=== PATIENT | male | born 1965 | race Caucasian/White ===

== ENCOUNTER 2022-03-05 20:47 | Emergency (ER) | payer MEDICAID ==
[~2022-03-05] VITALS: Ht 175.3 cm; Wt 75.0 kg
[2022-03-05] MEDS ORDERED: CefTRIAXone SODIUM 1 GM/VIAL IM ONE (22:15)
[2022-03-05] MEDS ORDERED: LIDOCAINE/PF 1% 2 ML VIAL IM ONE (22:15)
[2022-03-05] MEDS ORDERED: DOXYCYCLINE HYCLATE 100 MG TABLET PO ONE (22:15)
[2022-03-05] MEDS ORDERED: DOXY-354 PO (22:59)
[2022-03-05] MEDS ORDERED: CEPH-558 PO (22:59)
[2022-03-05 23:30] VITALS: BP 125/75
== END 2022-03-05 23:50 | disposition home or self-care (01) ==
LOC: EMS 20:55
DX: L03.115 Cellulitis of right lower limb (principal); F19.10 Other psychoactive substance abuse, uncomplicated; F11.10 Opioid abuse, uncomplicated
CPT/HCPCS: 99283; 96372; J0696; J3490

== ENCOUNTER 2022-08-23 20:43 | Emergency (ER) | payer MEDICAID ==
[~2022-08-23] VITALS: Ht 175.3 cm; Wt 75.0 kg
[~2022-08-23 20:43] MED LIST: CEPH-558 PO; DOXY-354 PO
[2022-08-24 00:09] LABS: BASOPHILS % (AUTO) 0.5 % (0.0-2.0); EOSINOPHILS % (AUTO) 0.1 % (1.0-6.0); HEMOGLOBIN 13.1 g/dL (13.5-17.5); LYMPHOCYTES # (AUTO) 0.6 K/uL (1.0-4.8); LYMPHOCYTES % (AUTO) 11.8 % (22.0-44.0); MEAN CORPUSCULAR HEMOGLOBIN 31.5 pg (26.0-34.0); MEAN CORPUSCULAR HGB CONC 33.6 G/dL (31.0-37.0); MEAN CORPUSCULAR VOLUME 94 fL (80-100); MONOCYTES # (AUTO) 0.5 K/uL (0.1-1.0); MONOCYTES % (AUTO) 10.5 % (2.0-9.0); NEUTROPHILS # (AUTO) 3.6 K/uL (1.8-7.7); NEUTROPHILS % (AUTO) 77.1 % (40.0-70.0); PLATELET COUNT (AUTO) 168 K/uL (150-450); RED BLOOD CELL COUNT(AUTO) 4.15 MIL/uL (4.50-5.90); RED CELL DISTRIBUTION WIDTH 14.9 % (11.5-14.5)
[2022-08-24 00:20] LABS: ANION GAP 4 mmol/L (8-16); CALCIUM, TOTAL 9.2 mg/dL (8.8-10.5); CARBON DIOXIDE 32 mmol/L (22-29); CHLORIDE 101 mmol/L (98-107); GLOMERULAR FILTR. RATE CALC > 60 mL/min (>60); GLUCOSE,RANDOM 113 mg/dL (70-110); POTASSIUM 3.8 mmol/L (3.5-5.1); SODIUM SERUM 137 mmol/L (136-145); UREA NITROGEN, BLOOD 15 mg/dL (7-18)
[2022-08-24 00:26] LABS: ALANINE AMINOTRANSFERASE 49 U/L (12-78); ALBUMIN 4.1 g/dL (3.4-5.0); ALKALINE PHOSPHATASE 56 U/L (46-116); ASPARTATE AMINOTRANSFERASE 65 U/L (15-37); BILIRUBIN,TOTAL 0.3 mg/dL (0.1-1.0); TOTAL PROTEIN, SERUM 7.6 g/dL (6.4-8.2)
[2022-08-24 00:47] LABS: INR 1.1 (0.9-1.1); PROTHROMBIN TIME 11.2 SEC (9.4-11.6)
[2022-08-24 03:08] VITALS: BP 133/70
[2022-08-24] MEDS ORDERED: CLIN-142 PO (03:09)
== END 2022-08-24 03:16 | disposition home or self-care (01) ==
LOC: EMS 20:43
DX: L03.115 Cellulitis of right lower limb (principal)
CPT/HCPCS: 80053; 83605; 85025; 85610; 85730; 93970; 99285

== ENCOUNTER 2023-03-11 13:33 | Emergency (ER) | payer MEDICAID ==
[~2023-03-11] VITALS: Ht 175.3 cm; Wt 72.7 kg
[~2023-03-11 13:33] MED LIST changes: -CEPH-558 PO; +CLIN-142 PO; -DOXY-354 PO
[2023-03-11 13:45] VITALS: TEMP 98.1
[2023-03-11 14:19] LABS: APPEARANCE,URINE HAZY (CLEAR); BILIRUBIN,URINE NEGATIVE (NEGATIVE); COLOR,URINE YELLOW (YELLOW); GLUCOSE, URINE (UA) NEGATIVE (NEGATIVE); KETONES,URINE NEGATIVE (NEGATIVE); LEUKOCYTE ESTERASE ,URINE LARGE (NEGATIVE); NITRATE,URINE NEGATIVE (NEGATIVE); OCCULT BLOOD,URINE MODERATE (NEGATIVE); PH,URINE 5.5 (5.0-8.0); PROTEIN,URINE 30-70 mg/dL (NEGATIVE); SPECIFIC GRAVITIY, URINE 1.016 (1.003-1.030); UROBILINOGEN,URINE <=1.0 mg/dL (<=1.0)
[2023-03-11 14:29] LABS: BACTERIA,URINE Moderate /HPF (None Seen); WBC,URINE >100 /HPF (0-5)
[2023-03-11 15:15] VITALS: BP 119/64; PULSE 71; RESP 17
[2023-03-11] MEDS ORDERED: CEPHALEXIN MONOHYDRATE 500 MG CAPSULE PO ONE (15:15)
[2023-03-11] MEDS ORDERED: CEPH-558 PO (15:21)
== END 2023-03-11 15:41 | disposition home or self-care (01) ==
LOC: EMS 13:57
DX: N39.0 Urinary tract infection, site not specified (principal)
CPT/HCPCS: 81001; 87086; 87186; 99283

== ENCOUNTER 2024-02-29 10:21 | Emergency (ER) | payer MEDICAID ==
[~2024-02-29] VITALS: Ht 177.8 cm; Wt 68.2 kg
[~2024-02-29 10:21] MED LIST changes: +CEPH-558 PO; -CLIN-142 PO
[2024-02-29 10:26] VITALS: BP 142/88; PULSE 88; RESP 18; TEMP 98; O2SAT 99
[2024-02-29] MEDS: ACETAMINOPHEN 500 MG TABLET PO ONE (10:41)
[2024-02-29] MEDS: KETOROLAC TROMETHAMINE 30 MG/ML VIAL IM ONE (10:41)
[2024-02-29] MEDS ORDERED: IBUP-1492 PO (10:43)
[2024-02-29] MEDS ORDERED: ACET-3385 PO (10:43)
[2024-02-29] MEDS ORDERED: LIDO700A15 TP (10:43)
== END 2024-02-29 10:49 | disposition home or self-care (01) ==
LOC: EMS 10:21
DX: S13.4XXA Sprain of ligaments of cervical spine, initial encounter (principal); V89.2XXA Person injured in unspecified motor-vehicle accident, traffic, initial encounter; Y93.89 Activity, other specified; Y92.89 Other specified places as the place of occurrence of the external cause; Y99.8 Other external cause status
CPT/HCPCS: 99283; 96372; J1885

== ENCOUNTER 2024-07-02 20:12 | Emergency (ER) | payer MEDICAID ==
[~2024-07-02] VITALS: Ht 175.3 cm; Wt 77.3 kg
[~2024-07-02 20:12] MED LIST changes: +ACET-3385 PO; -CEPH-558 PO; +IBUP-1492 PO; +LIDO700A15 TP
[2024-07-02 20:41] VITALS: BP 124/79; PULSE 71; RESP 18; TEMP 98.7; O2SAT 98
[2024-07-02 20:50] LABS: COVID AG,FIA SOURCE NASAL SWAB
[2024-07-02 21:12] LABS: INFLUENZA TYPE A NEGATIVE FOR TYPE A (NEGATIVE); INFLUENZA TYPE B NEGATIVE FOR TYPE B (NEGATIVE); SARS-COV2 (COVID) ANTIGEN,FIA Negative (Negative)
== END 2024-07-02 22:09 | disposition left against medical advice (07) ==
LOC: EMS 20:20
DX: Z53.21 Procedure and treatment not carried out due to patient leaving prior to being seen by health care provider (principal); Z20.822 Contact with and (suspected) exposure to COVID-19
CPT/HCPCS: 87804

== ENCOUNTER 2024-08-01 20:36 | Emergency (ER) | payer MEDICAID ==
[~2024-08-01] VITALS: Ht 175.3 cm; Wt 75.0 kg
[2024-08-01 20:39] VITALS: BP 143/81; PULSE 85; RESP 20; TEMP 97.9; O2SAT 98
[2024-08-01] MEDS: KETOROLAC TROMETHAMINE 30 MG/ML VIAL IM ONE (23:26)
[2024-08-01] MEDS: LIDOCAINE 5% TRANSDERMAL PATCH TD ONE (23:26)
[2024-08-01] MEDS: TraMADol HCL 50 MG TABLET PO ONE (23:27)
== END 2024-08-02 02:22 | disposition left against medical advice (07) ==
LOC: EMS 20:36
DX: M54.50 Low back pain, unspecified (principal)
CPT/HCPCS: 99283; 96372; J1885

== ENCOUNTER 2024-09-16 20:01 | Inpatient (IN) | payer MEDICAID ==
[~2024-09-16] VITALS: Ht 175.3 cm; Wt 71.5 kg
[~2024-09-16 20:01] MED LIST changes: +LIDO-57 TP; -LIDO700A15 TP
[2024-09-16] MEDS: IPRATROPIUM BROMIDE 0.5 MG/2.5 ML NEB SOLUTION NEB ONE (20:59)
[2024-09-16] MEDS: ALBUTEROL SULFATE 2.5 MG/0.5 ML NEB SOLUTION NEB ONE (20:59)
[2024-09-16 21:00] VITALS: PULSE 68; RESP 16; RESP 21; O2SAT 97
[2024-09-16 21:06] LABS: COVID AG,FIA SOURCE NASAL SWAB
[2024-09-16 21:07] LABS: BASOPHILS % (AUTO) 0.3 % (0.0-2.0); EOSINOPHILS % (AUTO) 0.3 % (1.0-6.0); HEMATOCRIT 38.2 % (41-53); HEMOGLOBIN 12.8 g/dL (13.5-17.5); LYMPHOCYTES # (AUTO) 0.7 K/uL (1.0-4.8); LYMPHOCYTES % (AUTO) 12.9 % (22.0-44.0); MEAN CORPUSCULAR HGB CONC 33.5 G/dL (31.0-37.0); MEAN CORPUSCULAR VOLUME 90 fL (80-100); MONOCYTES # (AUTO) 0.5 K/uL (0.1-1.0); MONOCYTES % (AUTO) 9.5 % (2.0-9.0); NEUTROPHILS # (AUTO) 4.2 K/uL (1.8-7.7); PLATELET COUNT (AUTO) 153 K/uL (150-450); RED BLOOD CELL COUNT(AUTO) 4.26 MIL/uL (4.50-5.90); RED CELL DISTRIBUTION WIDTH 13.8 % (11.5-14.5); WHITE BLOOD COUNT (AUTO) 5.5 K/uL (4.5-11.0)
[2024-09-16 21:18] LABS: ANION GAP 11 mmol/L (8-16); CALCIUM, TOTAL 8.7 mg/dL (8.8-10.5); CARBON DIOXIDE 27 mmol/L (22-29); CHLORIDE 103 mmol/L (98-107); CREATININE 0.81 mg/dL (0.60-1.30); GLOMERULAR FILTR. RATE CALC > 60 mL/min (>60); GLUCOSE,RANDOM 100 mg/dL (70-110); SODIUM SERUM 141 mmol/L (136-145); UREA NITROGEN, BLOOD 16 mg/dL (7-18)
[2024-09-16 21:20] VITALS: PULSE 72; RESP 20; O2SAT 100
[2024-09-16 21:25] LABS: TROPONIN I-HIGH SENSITIVITY 25 ng/L (<76)
[2024-09-16 21:29] LABS: INFLUENZA TYPE A NEGATIVE FOR TYPE A (NEGATIVE); INFLUENZA TYPE B NEGATIVE FOR TYPE B (NEGATIVE); SARS-COV2 (COVID) ANTIGEN,FIA Negative (Negative)
[2024-09-16 21:30] LABS: B-TYPE NATRIURETIC PEPTIDE 23 pg/mL (0-100)
[2024-09-16 21:39] LABS: CREATINE KINASE, TOTAL ONLY 375 U/L (39-308)
[2024-09-16] MEDS: LIDOCAINE 1% 10 ML VIAL SQ ONE (21:55)
[2024-09-16] MEDS: FentaNYL CITRATE PF 100 MCG/2 ML VIAL IVP ONE (21:56)
[2024-09-16] MEDS: LORazepam 2 MG/ML VIAL IVP ONE (21:56)
[2024-09-17] MEDS: FentaNYL CITRATE PF 100 MCG/2 ML VIAL IVP ONE (00:09)
[2024-09-17 03:20] LABS: APPEARANCE,URINE HAZY (CLEAR); BILIRUBIN,URINE NEGATIVE (NEGATIVE); COLOR,URINE LIGHT YELLOW (YELLOW); GLUCOSE, URINE (UA) NEGATIVE (NEGATIVE); KETONES,URINE NEGATIVE (NEGATIVE); LEUKOCYTE ESTERASE ,URINE NEGATIVE (NEGATIVE); NITRATE,URINE NEGATIVE (NEGATIVE); OCCULT BLOOD,URINE NEGATIVE (NEGATIVE); PROTEIN,URINE NEGATIVE (NEGATIVE); SPECIFIC GRAVITIY, URINE 1.024 (1.003-1.030); UROBILINOGEN,URINE <=1.0 mg/dL (<=1.0)
[2024-09-17] MEDS: TraMADol HCL 50 MG TABLET PO PRN (04:57)
[2024-09-17 05:30] VITALS: BP 166/94; PULSE 75; RESP 18; TEMP 98.4; O2SAT 97
[2024-09-17] MEDS ORDERED: ONDANSETRON HCL 4 MG/2 ML VIAL IVP PRN (06:30)
[2024-09-17] MEDS ORDERED: ACETAMINOPHEN 325 MG TABLET PO PRN (06:30)
[2024-09-17] MEDS ORDERED: BISACODYL 10 MG RECTAL RECTAL SUPPOSITORY PR PRN (06:30)
[2024-09-17] MEDS ORDERED: MAGNESIUM HYDROXIDE SUSPENSION 30 ML UDCUP PO PRN (06:30)
[2024-09-17 08:00] VITALS: BP 150/99; PULSE 84; RESP 18; TEMP 98.3; O2SAT 95
[2024-09-17 08:22] LABS: ANION GAP 12 mmol/L (8-16); CALCIUM, TOTAL 9.4 mg/dL (8.8-10.5); CARBON DIOXIDE 24 mmol/L (22-29); CHLORIDE 101 mmol/L (98-107); CREATININE 0.78 mg/dL (0.60-1.30); GLOMERULAR FILTR. RATE CALC > 60 mL/min (>60); GLUCOSE,RANDOM 102 mg/dL (70-110); POTASSIUM 3.9 mmol/L (3.5-5.1); SODIUM SERUM 137 mmol/L (136-145); UREA NITROGEN, BLOOD 12 mg/dL (7-18)
[2024-09-17 08:23] LABS: BASOPHILS % (AUTO) 0.3 % (0.0-2.0); EOSINOPHILS % (AUTO) 0.1 % (1.0-6.0); LYMPHOCYTES # (AUTO) 0.5 K/uL (1.0-4.8); LYMPHOCYTES % (AUTO) 5.3 % (22.0-44.0); MEAN CORPUSCULAR HEMOGLOBIN 30.6 pg (26.0-34.0); MEAN CORPUSCULAR HGB CONC 34.1 G/dL (31.0-37.0); MEAN CORPUSCULAR VOLUME 90 fL (80-100); MONOCYTES # (AUTO) 0.4 K/uL (0.1-1.0); MONOCYTES % (AUTO) 4.3 % (2.0-9.0); NEUTROPHILS # (AUTO) 8.5 K/uL (1.8-7.7); PLATELET COUNT (AUTO) 162 K/uL (150-450); RED CELL DISTRIBUTION WIDTH 13.6 % (11.5-14.5); WHITE BLOOD COUNT (AUTO) 9.4 K/uL (4.5-11.0)
[2024-09-17 08:28] LABS: RBC MORPHOLOGY COMMENT NORMAL RBC MORPH
[2024-09-17] MEDS: HYDROCODONE/ACETAMINOPHEN 5-325 MG TABLET PO PRN (08:30)
[2024-09-17] MEDS: HEPARIN SODIUM,PORCINE 5,000 UNITS/ML VIAL SQ SCH (08:30)
[2024-09-17] MEDS: DOCUSATE SODIUM 100 MG CAPSULE PO SCH (08:30)
[2024-09-17] MEDS: PANTOPRAZOLE SODIUM 40 MG DR TABLET PO SCH (08:30)
[2024-09-17 12:27] LABS: AMPHET/METH SCREEN,URINE POSITIVE (NEGATIVE); BARBITURATE SCREEN, URINE NEGATIVE (NEGATIVE); BENZODIAZEPINES SCREEN,URINE NEGATIVE (NEGATIVE); CANNABINOID SCREEN,URINE NEGATIVE (NEGATIVE); COCAINE SCREEN,URINE NEGATIVE (NEGATIVE); METHADONE SCREEN, URINE NEGATIVE (NEGATIVE); OPIATE SCREEN,URINE NEGATIVE (NEGATIVE); PHENCYCLIDINE SCREEN,URINE NEGATIVE (NEGATIVE)
[2024-09-17 12:32] LABS: ALCOHOL, URINE DRUG SCREEN NEGATIVE (NEGATIVE)
[2024-09-17 12:36] VITALS: BP 156/98; PULSE 73; RESP 18; TEMP 98.4; O2SAT 97
[2024-09-17] MEDS: MORPHINE SULFATE 2 MG/ML SYRINGE IVP PRN (13:22)
[2024-09-17 16:00] VITALS: BP 164/99; PULSE 77; RESP 26; TEMP 98.5; O2SAT 94
[2024-09-17 20:00] VITALS: BP 163/107; PULSE 84; RESP 13; TEMP 97.9; O2SAT 95
[2024-09-17] MEDS: KETOROLAC TROMETHAMINE 15 MG/ML VIAL IVP ONE (21:11)
[2024-09-17] MEDS: haloperidoL LACTATE 5 MG/ML VIAL IVP ONE (21:16)
[2024-09-17] MEDS: LORazepam 2 MG/ML VIAL IVP ONE (21:16)
[2024-09-17] MEDS: DiphenhydrAMINE HCL 50 MG/ML VIAL IVP ONE (21:17)
[2024-09-17] MEDS: ZOLPIDEM TARTRATE 5 MG TABLET PO PRN (21:34)
[2024-09-18] VITALS (10 sets, daily range): BP systolic 146–185; BP diastolic 69–120; PULSE 47–97; RESP 7–36; TEMP 98.6–99.6; O2SAT 96–99
[2024-09-18] MEDS ORDERED: DiphenhydrAMINE HCL 50 MG/ML VIAL IM ONE (03:00)
[2024-09-18] MEDS ORDERED: haloperidoL LACTATE 5 MG/ML VIAL IM ONE (03:00)
[2024-09-18] MEDS ORDERED: LORazepam 2 MG/ML VIAL IM ONE (03:00)
[2024-09-18] MEDS: LORazepam 2 MG/ML VIAL IVP ONE (03:11)
[2024-09-18] MEDS: DiphenhydrAMINE HCL 50 MG/ML VIAL IVP ONE (03:11)
[2024-09-18] MEDS: haloperidoL LACTATE 5 MG/ML VIAL IVP ONE (03:12)
[2024-09-18] MEDS ORDERED: SODIUM CHLORIDE 0.9% 1,000 ML ONE (03:38)
[2024-09-18] MEDS: MIDAZOLAM HCL 5 MG/ML VIAL IVP ONE (03:39)
[2024-09-18] MEDS ORDERED: ETOMIDATE 2 MG/ML 10 ML VIAL IVP ONE (03:45)
[2024-09-18] MEDS: ETOMIDATE 2 MG/ML 10 ML VIAL IVP ONE (04:06)
[2024-09-18] MEDS: DEXMEDETOMIDINE 400 MCG/NS 100 ML IV PRN (04:07)
[2024-09-18 05:36] LABS: ANION GAP 11 mmol/L (8-16); CALCIUM, TOTAL 8.6 mg/dL (8.8-10.5); CARBON DIOXIDE 24 mmol/L (22-29); CHLORIDE 101 mmol/L (98-107); GLOMERULAR FILTR. RATE CALC > 60 mL/min (>60); GLUCOSE,RANDOM 128 mg/dL (70-110); POTASSIUM 3.3 mmol/L (3.5-5.1); SODIUM SERUM 136 mmol/L (136-145); UREA NITROGEN, BLOOD 17 mg/dL (7-18)
[2024-09-18 05:38] LABS: EOSINOPHILS % (AUTO) 0 % (1.0-6.0); HEMATOCRIT 42.1 % (41-53); HEMOGLOBIN 14.5 g/dL (13.5-17.5); LYMPHOCYTES # (AUTO) 0.4 K/uL (1.0-4.8); LYMPHOCYTES % (AUTO) 3.3 % (22.0-44.0); MEAN CORPUSCULAR HEMOGLOBIN 30.1 pg (26.0-34.0); MEAN CORPUSCULAR HGB CONC 34.4 G/dL (31.0-37.0); MEAN CORPUSCULAR VOLUME 87 fL (80-100); MONOCYTES # (AUTO) 0.7 K/uL (0.1-1.0); MONOCYTES % (AUTO) 6.4 % (2.0-9.0); NEUTROPHILS # (AUTO) 9.6 K/uL (1.8-7.7); PLATELET COUNT (AUTO) 168 K/uL (150-450); RED BLOOD CELL COUNT(AUTO) 4.82 MIL/uL (4.50-5.90); WHITE BLOOD COUNT (AUTO) 10.7 K/uL (4.5-11.0)
[2024-09-18 05:39] LABS: NEUTROPHILS % (AUTO) 90.3 % (40.0-70.0)
[2024-09-18] MEDS ORDERED: SODIUM CHLORIDE 0.9% 250 ML IV ONE (06:31)
[2024-09-18] MEDS ORDERED: ChlordiazePOXIDE HCL 25 MG CAPSULE PO PRN (08:30)
[2024-09-18] MEDS: LORazepam 2 MG/ML VIAL IVP PRN ×2 (08:52→11:05)
[2024-09-18] MEDS: ETHYL ALCOHOL 62% ANTISEPTIC NASAL SANITIZER 0.6 ML AMPUL NASAL SCH (08:52)
[2024-09-18] MEDS ORDERED: LORazepam 2 MG/ML VIAL IVP PRN (10:15)
[2024-09-18] MEDS: DEXTROSE 5%-0.45% SODIUM CHL 1,000 ML IV ONE (11:00)
[2024-09-18] MEDS: POTASSIUM CHL 10 MEQ/WATER 50 ML IV PRN (15:02)
[2024-09-18] MEDS: HydrALAZINE HCL 20 MG/ML VIAL IVP PRN (15:03)
[2024-09-19] VITALS (7 sets, daily range): BP systolic 138–156; BP diastolic 74–97; PULSE 53–69; RESP 30–35; TEMP 97.9–99.4; O2SAT 95–97
[2024-09-19 03:08] LABS: BASOPHILS % (AUTO) 0.3 % (0.0-2.0); EOSINOPHILS % (AUTO) 0.1 % (1.0-6.0); HEMOGLOBIN 14.8 g/dL (13.5-17.5); LYMPHOCYTES # (AUTO) 0.6 K/uL (1.0-4.8); LYMPHOCYTES % (AUTO) 5.8 % (22.0-44.0); MEAN CORPUSCULAR HEMOGLOBIN 30.2 pg (26.0-34.0); MEAN CORPUSCULAR HGB CONC 34.5 G/dL (31.0-37.0); MEAN CORPUSCULAR VOLUME 88 fL (80-100); MONOCYTES % (AUTO) 9.5 % (2.0-9.0); NEUTROPHILS # (AUTO) 8.8 K/uL (1.8-7.7); NEUTROPHILS % (AUTO) 84.3 % (40.0-70.0); PLATELET COUNT (AUTO) 177 K/uL (150-450); RED BLOOD CELL COUNT(AUTO) 4.91 MIL/uL (4.50-5.90); RED CELL DISTRIBUTION WIDTH 13.7 % (11.5-14.5); WHITE BLOOD COUNT (AUTO) 10.4 K/uL (4.5-11.0)
[2024-09-19 03:16] LABS: ANION GAP 11 mmol/L (8-16); CALCIUM, TOTAL 8.8 mg/dL (8.8-10.5); CARBON DIOXIDE 21 mmol/L (22-29); CHLORIDE 98 mmol/L (98-107); CREATININE 0.61 mg/dL (0.60-1.30); GLOMERULAR FILTR. RATE CALC > 60 mL/min (>60); GLUCOSE,RANDOM 117 mg/dL (70-110); POTASSIUM 3.8 mmol/L (3.5-5.1); SODIUM SERUM 130 mmol/L (136-145); UREA NITROGEN, BLOOD 18 mg/dL (7-18)
[2024-09-19] MEDS ORDERED: ChlordiazePOXIDE HCL 25 MG CAPSULE PO PRN (07:00)
[2024-09-19] MEDS: ChlordiazePOXIDE HCL 25 MG CAPSULE PO SCH (08:42)
[2024-09-20] VITALS (7 sets, daily range): BP systolic 130–165; BP diastolic 67–100; PULSE 65–88; RESP 17–30; TEMP 98–98.4; O2SAT 93–100
[2024-09-20 06:02] LABS: BASOPHILS % (AUTO) 0.2 % (0.0-2.0); EOSINOPHILS % (AUTO) 0.1 % (1.0-6.0); HEMATOCRIT 46.7 % (41-53); HEMOGLOBIN 16.2 g/dL (13.5-17.5); LYMPHOCYTES # (AUTO) 0.7 K/uL (1.0-4.8); LYMPHOCYTES % (AUTO) 6.8 % (22.0-44.0); MEAN CORPUSCULAR HEMOGLOBIN 30.3 pg (26.0-34.0); MEAN CORPUSCULAR HGB CONC 34.7 G/dL (31.0-37.0); MEAN CORPUSCULAR VOLUME 87 fL (80-100); MONOCYTES # (AUTO) 1.2 K/uL (0.1-1.0); MONOCYTES % (AUTO) 12.2 % (2.0-9.0); NEUTROPHILS % (AUTO) 80.7 % (40.0-70.0); PLATELET COUNT (AUTO) 204 K/uL (150-450); RED BLOOD CELL COUNT(AUTO) 5.34 MIL/uL (4.50-5.90); RED CELL DISTRIBUTION WIDTH 13.8 % (11.5-14.5)
[2024-09-20 06:12] LABS: ANION GAP 11 mmol/L (8-16); CALCIUM, TOTAL 8.9 mg/dL (8.8-10.5); CARBON DIOXIDE 22 mmol/L (22-29); CHLORIDE 97 mmol/L (98-107); CREATININE 0.65 mg/dL (0.60-1.30); GLOMERULAR FILTR. RATE CALC > 60 mL/min (>60); GLUCOSE,RANDOM 106 mg/dL (70-110); POTASSIUM 3.1 mmol/L (3.5-5.1); SODIUM SERUM 130 mmol/L (136-145); UREA NITROGEN, BLOOD 17 mg/dL (7-18)
[2024-09-20] MEDS: POTASSIUM CHLORIDE 20 MEQ ER TABLET PO PRN (06:52)
[2024-09-20] MEDS: BUPRENORPHINE HCL/NALOXONE HCL 8-2 MG SUBLINGUAL TABLET SL SCH (09:29)
[2024-09-20] MEDS ORDERED: LORazepam 2 MG/ML VIAL ONE (20:10)
[2024-09-20] MEDS ORDERED: haloperidoL LACTATE 5 MG/ML VIAL ONE (20:10)
[2024-09-20] MEDS ORDERED: DiphenhydrAMINE HCL 50 MG/ML VIAL ONE (20:10)
[2024-09-20] MEDS: LORazepam 2 MG/ML VIAL IVP ONE (20:19)
[2024-09-20] MEDS: haloperidoL LACTATE 5 MG/ML VIAL IVP ONE (20:20)
[2024-09-20] MEDS: DiphenhydrAMINE HCL 50 MG/ML VIAL IVP ONE (20:20)
[2024-09-20] MEDS: haloperidoL LACTATE 5 MG/ML VIAL IM PRN (23:02)
[2024-09-21] VITALS (8 sets, daily range): BP systolic 128–164; BP diastolic 83–104; PULSE 69–90; RESP 18–20; TEMP 97.5–99; O2SAT 96–100
[2024-09-21] MEDS ORDERED: ChlordiazePOXIDE HCL 10 MG CAPSULE PO PRN (07:00)
[2024-09-21] MEDS ORDERED: ChlordiazePOXIDE HCL 10 MG CAPSULE PO SCH (09:00)
[2024-09-22] VITALS (8 sets, daily range): BP systolic 120–146; BP diastolic 74–95; PULSE 69–90; RESP 18–19; TEMP 97.7–98.2; O2SAT 95–99
[2024-09-22] MEDS ORDERED: ChlordiazePOXIDE HCL 10 MG CAPSULE PO PRN (07:00)
[2024-09-22 07:20] LABS: BASOPHILS % (AUTO) 0.4 % (0.0-2.0); EOSINOPHILS % (AUTO) 0.7 % (1.0-6.0); HEMATOCRIT 48.9 % (41-53); HEMOGLOBIN 16.6 g/dL (13.5-17.5); LYMPHOCYTES # (AUTO) 1.2 K/uL (1.0-4.8); LYMPHOCYTES % (AUTO) 14.9 % (22.0-44.0); MEAN CORPUSCULAR HEMOGLOBIN 30.2 pg (26.0-34.0); MEAN CORPUSCULAR HGB CONC 33.9 G/dL (31.0-37.0); MEAN CORPUSCULAR VOLUME 89 fL (80-100); MONOCYTES # (AUTO) 1.1 K/uL (0.1-1.0); MONOCYTES % (AUTO) 13.2 % (2.0-9.0); NEUTROPHILS # (AUTO) 5.6 K/uL (1.8-7.7); NEUTROPHILS % (AUTO) 70.8 % (40.0-70.0); PLATELET COUNT (AUTO) 251 K/uL (150-450); RED BLOOD CELL COUNT(AUTO) 5.49 MIL/uL (4.50-5.90); RED CELL DISTRIBUTION WIDTH 14.2 % (11.5-14.5)
[2024-09-22 07:35] LABS: ANION GAP 9 mmol/L (8-16); CARBON DIOXIDE 24 mmol/L (22-29); CHLORIDE 101 mmol/L (98-107); CREATININE 0.91 mg/dL (0.60-1.30); GLOMERULAR FILTR. RATE CALC > 60 mL/min (>60); GLUCOSE,RANDOM 104 mg/dL (70-110); SODIUM SERUM 134 mmol/L (136-145); UREA NITROGEN, BLOOD 17 mg/dL (7-18)
[2024-09-22] MEDS: BuPROPion HCL XL 150 MG ER TABLET PO SCH (08:48)
[2024-09-23] VITALS (8 sets, daily range): BP systolic 126–144; BP diastolic 81–92; PULSE 73–99; RESP 17–19; TEMP 98.2–98.8; O2SAT 96–100
[2024-09-23] MEDS: NICOTINE 21 MG/24 HOUR PATCH TD SCH (18:02)
[2024-09-24] VITALS (9 sets, daily range): BP systolic 112–142; BP diastolic 67–97; PULSE 60–84; RESP 18–20; TEMP 97.7–98.6; O2SAT 97–100
[2024-09-24] MEDS: NEOMYCIN/BACITRACIN/POLYMYXIN B 30 GM OINTMENT TP SCH (12:44)
[2024-09-25] VITALS (7 sets, daily range): BP systolic 114–179; BP diastolic 73–117; PULSE 60–88; RESP 15–20; TEMP 97.7–98.6; O2SAT 95–100
[2024-09-25] MEDS ORDERED: LIDOCAINE/PF 2% 5 ML VIAL ONE (06:02)
[2024-09-25] MEDS ORDERED: MIDAZOLAM HCL 2 MG/2 ML VIAL ONE (06:02)
[2024-09-25] MEDS ORDERED: PROPOFOL 1% 20 ML VIAL IVP ONE (06:02)
[2024-09-25] MEDS ORDERED: DEXAMETHASONE SOD PHOS 4 MG/ML VIAL ONE (06:02)
[2024-09-25] MEDS ORDERED: ONDANSETRON HCL 4 MG/2 ML VIAL ONE (06:02)
[2024-09-25] MEDS ORDERED: ROCURONIUM BROMIDE 10 MG/ML 5 ML VIAL ONE (06:02)
[2024-09-25] MEDS ORDERED: KETOROLAC TROMETHAMINE 60 MG/2 ML VIAL IM ONE (06:02)
[2024-09-25] MEDS ORDERED: SUGAMMADEX SODIUM 200 MG/2 ML VIAL IVP ONE (06:02)
[2024-09-25] MEDS ORDERED: PROPOFOL 1% ISO-OSM 1000 MG/100 ML BOTTLE ONE (06:02)
[2024-09-25] MEDS ORDERED: HydrALAZINE HCL 20 MG/ML VIAL ONE (06:02)
[2024-09-25] MEDS ORDERED: GLYCOPYRROLATE 0.2 MG/ML VIAL ONE (06:02)
[2024-09-25] MEDS ORDERED: KETAMINE HCL 50 MG/ML 10 ML VIAL ONE (06:02)
[2024-09-25] MEDS ORDERED: FentaNYL CITRATE PF 100 MCG/2 ML VIAL ONE (06:02)
[2024-09-25] MEDS: CHLORHEXIDINE GLUCONATE 2% TOWELETTE [2'S/6'S] TP ONE (08:03)
[2024-09-25] MEDS: ETHYL ALCOHOL 62% ANTISEPTIC NASAL SANITIZER 0.6 ML AMPUL NASAL ONE (10:07)
[2024-09-25 11:25] LABS: BASOPHILS % (AUTO) 0.2 % (0.0-2.0); EOSINOPHILS % (AUTO) 0.7 % (1.0-6.0); HEMATOCRIT 39.8 % (41-53); HEMOGLOBIN 13.4 g/dL (13.5-17.5); LYMPHOCYTES # (AUTO) 1.1 K/uL (1.0-4.8); LYMPHOCYTES % (AUTO) 24.9 % (22.0-44.0); MEAN CORPUSCULAR HEMOGLOBIN 29.7 pg (26.0-34.0); MEAN CORPUSCULAR HGB CONC 33.6 G/dL (31.0-37.0); MEAN CORPUSCULAR VOLUME 89 fL (80-100); MONOCYTES # (AUTO) 0.7 K/uL (0.1-1.0); MONOCYTES % (AUTO) 15.6 % (2.0-9.0); NEUTROPHILS # (AUTO) 2.7 K/uL (1.8-7.7); NEUTROPHILS % (AUTO) 58.6 % (40.0-70.0); PLATELET COUNT (AUTO) 258 K/uL (150-450); RED BLOOD CELL COUNT(AUTO) 4.49 MIL/uL (4.50-5.90); RED CELL DISTRIBUTION WIDTH 13.6 % (11.5-14.5); WHITE BLOOD COUNT (AUTO) 4.6 K/uL (4.5-11.0)
[2024-09-25 11:40] LABS: ANION GAP 4 mmol/L (8-16); CALCIUM, TOTAL 8.9 mg/dL (8.8-10.5); CARBON DIOXIDE 29 mmol/L (22-29); CHLORIDE 102 mmol/L (98-107); CREATININE 0.88 mg/dL (0.60-1.30); GLOMERULAR FILTR. RATE CALC > 60 mL/min (>60); GLUCOSE,RANDOM 92 mg/dL (70-110); POTASSIUM 4.2 mmol/L (3.5-5.1); SODIUM SERUM 135 mmol/L (136-145); UREA NITROGEN, BLOOD 22 mg/dL (7-18)
[2024-09-25 11:41] LABS: PROTHROMBIN TIME 11.1 SEC (9.4-11.6)
[2024-09-25] MEDS ORDERED: RINGERS SOLUTION,LACTATED 0 ML IV ONE (12:23)
[2024-09-25] MEDS ORDERED: RINGERS SOLUTION,LACTATED 1,000 ML IV ONE (13:01)
[2024-09-25] MEDS ORDERED: CeFAZolin SODIUM 1 GM VIAL ONE (13:20)
[2024-09-25] MEDS ORDERED: DILTIAZEM HCL 5 MG/ML 5 ML VIAL IVP ONE ×2 (13:23→13:30)
[2024-09-25] MEDS ORDERED: NOREPINEPHRINE 8 MG/0.9 % NACL 250 ML IV PRN (13:30)
[2024-09-25] MEDS: RINGERS SOLUTION,LACTATED 1,000 ML IV ONE (13:32)
[2024-09-25] MEDS: BUPIVACAINE/EPI/PF 0.5% 30 ML VIAL ONE (14:52)
[2024-09-25] MEDS: LIDOCAINE/PF 1% 30 ML VIAL ONE (14:52)
[2024-09-25] MEDS: DOXYCYCLINE HYCLATE 100 MG/VIAL IPL ONE (15:06)
[2024-09-25] MEDS ORDERED: HYDROmorphone HCL 2 MG/ML SYRINGE IVP PRN ×3 (15:15)
[2024-09-25] MEDS ORDERED: MORPHINE SULFATE 2 MG/ML SYRINGE IVP PRN (16:00)
[2024-09-25] MEDS ORDERED: HYDROmorphone HCL 2 MG/ML SYRINGE ONE (16:06)
[2024-09-25] MEDS ORDERED: DiphenhydrAMINE HCL 50 MG/ML VIAL ONE (16:26)
[2024-09-25] MEDS ORDERED: SODIUM CHLORIDE 0.9% 500 ML IV ONE (16:37)
[2024-09-25] MEDS: DEXMEDETOMIDINE 400 MCG/NS 100 ML IV PRN (17:36)
[2024-09-25] MEDS: LORazepam 2 MG/ML VIAL IM PRN (17:37)
[2024-09-25] MEDS: ACETAMINOPHEN 1000 MG/ISO-OSM 100 ML IV SCH (19:57)
[2024-09-25] MEDS ORDERED: SODIUM CHLORIDE 0.9% 250 ML IV ONE (23:14)
[2024-09-25] MEDS: CeFAZolin 1 GM/DEXTROSE 50 ML IV SCH (23:21)
[2024-09-26] VITALS (7 sets, daily range): BP systolic 91–107; BP diastolic 55–70; PULSE 57–79; RESP 13–22; TEMP 97.8–98.6; O2SAT 94–97
[2024-09-26 05:52] LABS: BASOPHILS % (AUTO) 0.1 % (0.0-2.0); EOSINOPHILS % (AUTO) 0.5 % (1.0-6.0); LYMPHOCYTES # (AUTO) 0.7 K/uL (1.0-4.8); LYMPHOCYTES % (AUTO) 10.1 % (22.0-44.0); MEAN CORPUSCULAR HEMOGLOBIN 30.3 pg (26.0-34.0); MEAN CORPUSCULAR HGB CONC 34.2 G/dL (31.0-37.0); MEAN CORPUSCULAR VOLUME 89 fL (80-100); MONOCYTES # (AUTO) 0.7 K/uL (0.1-1.0); MONOCYTES % (AUTO) 9.9 % (2.0-9.0); NEUTROPHILS # (AUTO) 5.7 K/uL (1.8-7.7); NEUTROPHILS % (AUTO) 79.4 % (40.0-70.0); PLATELET COUNT (AUTO) 237 K/uL (150-450); RED BLOOD CELL COUNT(AUTO) 4.29 MIL/uL (4.50-5.90); RED CELL DISTRIBUTION WIDTH 13.8 % (11.5-14.5); WHITE BLOOD COUNT (AUTO) 7.1 K/uL (4.5-11.0)
[2024-09-26 05:59] LABS: ANION GAP 4 mmol/L (8-16); CALCIUM, TOTAL 8.8 mg/dL (8.8-10.5); CARBON DIOXIDE 30 mmol/L (22-29); CHLORIDE 99 mmol/L (98-107); CREATININE 0.86 mg/dL (0.60-1.30); GLOMERULAR FILTR. RATE CALC > 60 mL/min (>60); GLUCOSE,RANDOM 113 mg/dL (70-110); SODIUM SERUM 133 mmol/L (136-145); UREA NITROGEN, BLOOD 22 mg/dL (7-18)
[2024-09-26] MEDS ORDERED: SODIUM CHLORIDE 0.9% 250 ML IV ONE (11:45)
[2024-09-27] VITALS: BP 91/47; PULSE 63; RESP 22; TEMP 98.1; O2SAT 97
[2024-09-27 04:00] VITALS: BP 90/55; PULSE 77; PULSE 78; RESP 14; TEMP 97.8; O2SAT 97
[2024-09-27 06:14] LABS: BASOPHILS % (AUTO) 0.2 % (0.0-2.0); EOSINOPHILS % (AUTO) 0.4 % (1.0-6.0); HEMATOCRIT 36.8 % (41-53); HEMOGLOBIN 12.7 g/dL (13.5-17.5); LYMPHOCYTES # (AUTO) 0.8 K/uL (1.0-4.8); LYMPHOCYTES % (AUTO) 10.7 % (22.0-44.0); MEAN CORPUSCULAR HEMOGLOBIN 30.7 pg (26.0-34.0); MEAN CORPUSCULAR HGB CONC 34.5 G/dL (31.0-37.0); MEAN CORPUSCULAR VOLUME 89 fL (80-100); MONOCYTES # (AUTO) 0.8 K/uL (0.1-1.0); MONOCYTES % (AUTO) 11.7 % (2.0-9.0); NEUTROPHILS # (AUTO) 5.5 K/uL (1.8-7.7); PLATELET COUNT (AUTO) 245 K/uL (150-450); RED BLOOD CELL COUNT(AUTO) 4.14 MIL/uL (4.50-5.90); RED CELL DISTRIBUTION WIDTH 13.6 % (11.5-14.5); WHITE BLOOD COUNT (AUTO) 7.2 K/uL (4.5-11.0)
[2024-09-27 06:27] LABS: ANION GAP 5 mmol/L (8-16); CALCIUM, TOTAL 8.3 mg/dL (8.8-10.5); CARBON DIOXIDE 25 mmol/L (22-29); CHLORIDE 104 mmol/L (98-107); CREATININE 0.88 mg/dL (0.60-1.30); GLOMERULAR FILTR. RATE CALC > 60 mL/min (>60); GLUCOSE,RANDOM 109 mg/dL (70-110); POTASSIUM 4.3 mmol/L (3.5-5.1); SODIUM SERUM 134 mmol/L (136-145); UREA NITROGEN, BLOOD 20 mg/dL (7-18)
[2024-09-27 06:32] LABS: PHOSPHORUS 2.9 mg/dL (2.5-4.9)
[2024-09-27 08:00] VITALS: BP 95/56; PULSE 82; RESP 18; TEMP 98; O2SAT 95
[2024-09-27] MEDS ORDERED: LORazepam 2 MG/ML VIAL IM PRN (09:30)
[2024-09-27 12:00] VITALS: BP 111/73; PULSE 78; RESP 18; TEMP 97.8; O2SAT 96
[2024-09-27] MEDS: OxyCODONE HCL/ACETAMINOPHEN 5-325 MG TABLET PO PRN (13:14)
[2024-09-27] MEDS: LORazepam 2 MG/ML VIAL IM PRN (13:41)
[2024-09-27] MEDS: DiphenhydrAMINE HCL 50 MG/ML VIAL IM ONE (18:34)
[2024-09-27] MEDS: haloperidoL LACTATE 5 MG/ML VIAL IM ONE (18:34)
[2024-09-27] MEDS: LORazepam 2 MG/ML VIAL IM ONE (18:35)
[2024-09-27 19:22] VITALS: BP 151/93; PULSE 73; RESP 17; TEMP 98.2; O2SAT 95
[2024-09-27] MEDS ORDERED: SODIUM CHLORIDE 0.9% 250 ML IV ONE (20:12)
[2024-09-28 00:09] VITALS: BP 142/84; PULSE 95; RESP 15; TEMP 98.2; O2SAT 98
[2024-09-28 04:41] VITALS: RESP 18
[2024-09-28 05:20] VITALS: BP 141/91; PULSE 97; RESP 19; TEMP 99.3; O2SAT 99
[2024-09-28 08:14] VITALS: BP 150/80; PULSE 94; RESP 19; TEMP 99.1; O2SAT 99
[2024-09-28 09:10] LABS: BASOPHILS % (AUTO) 0.2 % (0.0-2.0); EOSINOPHILS % (AUTO) 0.3 % (1.0-6.0); HEMOGLOBIN 14.6 g/dL (13.5-17.5); LYMPHOCYTES # (AUTO) 0.6 K/uL (1.0-4.8); LYMPHOCYTES % (AUTO) 5.1 % (22.0-44.0); MEAN CORPUSCULAR VOLUME 91 fL (80-100); MONOCYTES # (AUTO) 0.8 K/uL (0.1-1.0); MONOCYTES % (AUTO) 6.7 % (2.0-9.0); PLATELET COUNT (AUTO) 214 K/uL (150-450); RED BLOOD CELL COUNT(AUTO) 4.72 MIL/uL (4.50-5.90); RED CELL DISTRIBUTION WIDTH 13.9 % (11.5-14.5); WHITE BLOOD COUNT (AUTO) 11.4 K/uL (4.5-11.0)
[2024-09-28 09:13] LABS: NEUTROPHILS % (AUTO) 87.7 % (40.0-70.0); RBC MORPHOLOGY COMMENT NORMAL RBC MORPH
[2024-09-28 09:24] LABS: ANION GAP 11 mmol/L (8-16); CARBON DIOXIDE 24 mmol/L (22-29); CHLORIDE 99 mmol/L (98-107); CREATININE 0.96 mg/dL (0.60-1.30); GLOMERULAR FILTR. RATE CALC > 60 mL/min (>60); GLUCOSE,RANDOM 156 mg/dL (70-110); POTASSIUM 4.1 mmol/L (3.5-5.1); SODIUM SERUM 134 mmol/L (136-145); UREA NITROGEN, BLOOD 12 mg/dL (7-18)
[2024-09-28 09:32] LABS: CALCIUM, TOTAL 8.7 mg/dL (8.8-10.5)
[2024-09-28 11:39] VITALS: BP 139/91; PULSE 98; RESP 19; TEMP 98.1; O2SAT 99
== END 2024-09-28 15:21 | disposition left against medical advice (07) | DRG 121 ==
LOC: EMS 20:01 → EDH 09-17 03:00 → ICU 09-17 05:30 → 5S 09-20 16:00 → ICU 09-25 14:48 → 5S 09-27 18:00
PROVIDERS: ADMIT Internal Medicine; ATTEND Internal Medicine
PROC: 0W9B30Z Drainage of Left Pleural Cavity with Drainage Device, Percutaneous Approach (ICD-10-PCS; 2024-09-16)
PROC: 0W9B30Z Drainage of Left Pleural Cavity with Drainage Device, Percutaneous Approach (ICD-10-PCS; 2024-09-18)
PROC: 05HA33Z Insertion of Infusion Device into Left Brachial Vein, Percutaneous Approach (ICD-10-PCS; 2024-09-18)
PROC: B54NZZA Ultrasonography of Left Upper Extremity Veins, Guidance (ICD-10-PCS; 2024-09-18)
PROC: 3E0L4GC Introduction of Other Therapeutic Substance into Pleural Cavity, Percutaneous Endoscopic Approach (ICD-10-PCS; 2024-09-25)
PROC: 0BBG4ZZ Excision of Left Upper Lung Lobe, Percutaneous Endoscopic Approach (ICD-10-PCS; principal; 2024-09-25 14:20)
DX: J93.83 Other pneumothorax (principal); G92.9 Unspecified toxic encephalopathy; F25.9 Schizoaffective disorder, unspecified; E87.1 Hypo-osmolality and hyponatremia; J98.2 Interstitial emphysema; F10.139 Alcohol abuse with withdrawal, unspecified; Y90.9 Presence of alcohol in blood, level not specified; F11.13 Opioid abuse with withdrawal; F15.13 Other stimulant abuse with withdrawal; E87.6 Hypokalemia; Z20.822 Contact with and (suspected) exposure to COVID-19; K86.1 Other chronic pancreatitis; F17.200 Nicotine dependence, unspecified, uncomplicated; Z78.1 Physical restraint status; Z91.199 Patient's noncompliance with other medical treatment and regimen due to unspecified reason; Z76.5 Malingerer [conscious simulation]
CPT/HCPCS: 36245; 36569; 71045; 71250; 76937; 80048; 80307; 81003; 82550; 83735; 83880; 84100; 84132; 84484; 85025; 85610; 85730; 87070; 87081; 87186; 87205; 87804; 88307; 93005; 94060; 94640; 99291; J0131; J0360; J0690; J1100; J1171; J1200; J1630; J1644; J1885; J2060; J2250; J2270; J2405; J2704; J3010; J3480; J3490; J7030; J7040; J7050; J7120; 36415-L1; 36415-TC; J7613; Z7610

== ENCOUNTER 2024-10-04 06:03 | Emergency (ER) | payer MEDICAID ==
[~2024-10-04] VITALS: Ht 175.3 cm; Wt 75.0 kg
[2024-10-04 06:13] VITALS: TEMP 97.5
[2024-10-04] MEDS ORDERED: AMPICILLIN SODIUM/SULBACTAM NA 1.5 GM in SODIUM CHLORIDE 0.9% 50 ML IV ONE (07:45)
[2024-10-04] MEDS: CEPHALEXIN MONOHYDRATE 500 MG CAPSULE PO ONE (08:02)
[2024-10-04] MEDS: SULFAMETHOX/TRIMETH DS 800-160 MG/TABLET PO ONE (08:02)
[2024-10-04] MEDS ORDERED: CEPH-558 PO (08:30)
[2024-10-04] MEDS ORDERED: SULF-261 PO (08:30)
[2024-10-04 08:38] VITALS: BP 119/85; PULSE 71; RESP 20; O2SAT 97
== END 2024-10-04 08:39 | disposition home or self-care (01) ==
LOC: EMS 06:12
DX: L03.90 Cellulitis, unspecified (principal); F15.90 Other stimulant use, unspecified, uncomplicated; Z46.82 Encounter for fitting and adjustment of non-vascular catheter; Z98.890 Other specified postprocedural states
CPT/HCPCS: 99283; J0295; J7050